=== PATIENT | female | born 1985 | race Caucasian/White ===

== ENCOUNTER 2022-05-05 16:41 | Outpatient (CLI) | payer OTHER, SELFPAY ==
--- OUTSIDE RECORDS SUMMARY | 2022-05-05 16:45 | XMS_ITS | Encounter Summary ---
:1985 Author Organization [facility] Address [address] [place] [address] Care Team Providers Name Role Phone Unavailable Primary Care Provider Unavailable Encounter Details Date Type Department Care Team Description 09/17/2020 Orders Only [facility] PCP TH Sa drea Gardiner M.D. [address] [place] [address] [phone] (Wo rk) Social History Tobacco Use Types Packs/Day Years Used Date Smoking Tobacco: Never Smokeless Tobacco: Never Sex Assigned at Date Recorded Not on file documented as of this encounter Plan of Treatment Not on filedocumented as of this encounter Visit Diagnoses Not on filedocumented in this encounter
--- OUTSIDE RECORDS SUMMARY | 2022-05-05 16:45 | XMS_ITS | Clinical Summary ---
:1985 Author Organization [facility] [place] [address] Care Team Providers Name Role Phone Clinic, [facility] Primary Care Provider + Allergies Active Allergy Reactions Severity Noted Date Comments Sumatriptan Vomiting 08/30/2012 Lactose GI Upset 04/11/2011 Lactose Sulfa (Sulfonamide Antibiotics) Hives 0 Medications Medication Sig Dispensed Refills Start Date End Date Status vitamin-folic Take 1 tablet by 0 04/24/2011 Active acid 1 mg ( mouth once daily. VITAMIN) tablet/capsule NebulizerIndications: Nebulizer, neb 1 Device 2 03/26/2014 Active Extrinsic asthma, kit, neb cup and unspecified mask. Medication: Budesonide & DuoNebs For home use. Length of need for Medicare patients: 99 months montelukast Take 1 tablet by 30 tablet 11 06/11/2015 Active (SINGULAIR) 10 mg mouth at bedtime. tabletIndications: Allergic rhinitis, unspecified allergic rhinitis type, Extrinsic asthma, unspecified asthma severity, uncomplicated albuterol-ipratropium Inhale 3 mL via a 120 Vial 11 06/11/2015 Active (DUONEB) (2.5-0.5 mg) nebulizer 4 times in 3 mL NEBULIZATION daily if needed solutionIndications: for Shortness Of Extrinsic asthma, Breath or unspecified asthma Wheezing. severity, uncomplicated COMBIVENT RESPIMAT INHALE 1 PUFF BY 1 Inhaler 0 10/28/2016 Active 20-100 mcg/actuation MOUTH 4 TIMES inhalerIndications: DAILY. Extrinsic asthma, unspecified asthma severity, uncomplicated albuterol HFA Inhale 2 Puffs by 1 Inhaler 0 11/05/2016 Active (VENTOLIN HFA) 90 mouth 4 times mcg/actuation daily if needed. inhalerIndications: Extrinsic asthma, unspecified asthma severity, uncomplicated BREO ELLIPTA 100-25 11 08/02/2018 Active mcg/dose inhaler cetirizine (ZYRTEC) 5 Take 1 tablet by 0 08/08/2018 Active mg tablet mouth once daily. Active Problems Problem Noted Date 35 weeks gestation of 08/08/2018 Overview: following at [facility] Allergic conjunctivitis 03/26/2014 Allergic rhinitis 07/29/2012 Other acne 07/06/2011 ASCUS with positive high risk HPV 04/23/2011 Overview: 04/2011- ASCUS & HPV POSITIVE; 02/2012-[place] KRIS I; 01/2013-[place] negative-repeat pap in 1 mario becerra Last Assessment & Plan: 12/2013 Pap NIL Per provider Carolyn mcfarlane NP , Will get PAP at post visit to include ECC. If NIL-Return to Routine screening. RERE: 08/22/2014 Pap & ECC due late spring 2014 Endometriosis, site unspecified 02/26/2010 Moderate to Severe Persistent Asthma 02/26/2010 Headache(784.0) 02/26/2010 Tension headache 02/26/2010 Estimated Date of Delivery Comments Yes 09/06/2018 Resolved Problems Problem Noted Date Resolved Date Supervision of other normal , antepartum 05/09/2015 08/08/2018 Overview: Abnormal LMP Close spacing, 08/11/2014 Lives in [place] History of Asthma-worsened in History of OLIVER's O positive (normal spontaneous vaginal delivery) 08/12/2014 08/08/2018 Decreased movement 07/11/2014 04/30/2015 Normal in multigravida 12/13/2013 019 Overview: LMP: 11/15/2013 EDC 08/24/2014 Asthma Worsened in this Declined Genetic screening Baby Alex Moderate persistent asthma 07/29/2012 04/23/2014 Allergic rhinitis due to pollen 07/29/2012 03/26/20 14 False labor after 37 weeks of gestation without delivery 03/201204/30/2015 (normal spontaneous vaginal delivery) 12/30/2011 08/08/2018 care and examination of lactating mother 12/30/19 12 04/30/2015 Diarrhea 11/16/2011 04/30/2015 Marginal placenta previa 09/28/2011 04/30/2015 Last Assessment & Plan: Formatting of th is note might be different from the original. Placenta previa resolved per repeat US. Nicole Paez MD 12/27/2011 9:36 PM Supervision of normal first 05/22/2011 Overview: Hospital: [facility] Boyfriend: Chandra Taylor UTI at first OB visit Declines FS/SS, QS and CF Marginal placenta previa at 20 weeks. Re check 28wks- resolved, no previa Tdap 11/23/2011 Immunizations Name Administration Dates Next Due Influenza, IIV3 (Age >=3 years) 02/15/2012 Influenza, IIV4 03/15/2018, 03/06/2017, 04/30/2015, 03/08/2014 MMR 12/09/2015 Pneumococcal Poly,23-Valent 03/12/2006 (Pneumovax) Tdap 06/21/2018, 10/25/2015, 05/30/2014, 11/23/2011 Family History Medical History Relation Name Comments Good Health Brother 2 Heart Disease Father [place] age 42 Other Maternal Grandfather Psychiatric illness Maternal Grandfather Alcoholism Maternal Grandmother Anesthesia Problem Maternal Grandmother Cancer Maternal Grandmother Cancer-breast Maternal Grandmother Alcoholism Mother Allergies Mother Arthritis Mother Psychiatric illness Mother bipolar Cancer Paternal Grandfather Cancer-prostate Paternal Grandfather Arthritis Paternal Grandmother Good Health Son 2 Relation Name Status Comments Brother 1 Alive Brother 2 Father Alive no relationship; parents and remarried Maternal Grandfather Maternal Grandmother Mother Alive bipolar with eto h abuse hx Paternal Grandfather Alive Paternal Grandmother Alive Son 1 Alive Son 2 Social History Tobacco Use Types Packs/Day Years Used Date Smoking Tobacco: Never Smokeless Tobacco: Never Tobacco Cessation: Counseling Given: Yes Alcohol Use Standard Drinks/Week Comments Not Currently 1 (1 standard drink = 0.6 oz pure hx of heavy drinking age 20-21, pt alcohol) cut back, now infreq uent social use; cage screen neg ative Estimated Date of Delivery Comments Yes 09/06/2018 Sex Assigned at Date Recorded Not on file Obstetrics History Para Term AB IAB SAB Ectopic Multiple Living Live Births 4 2 2 0 0 0 0 0 0 2 2 Date Outcome GA Total Labor/2nd/3rd Weight Sex Delivery Anes PTL Toshia A 1 A5 Name Clin Labor 12/29 Term 39w 3.83 kg M Vag Epidu N Lara Jas /2011 3d (8 lb 7 ral ng oz) Delivery Location: [facility] Comments: BLN:BUBAK PEDS:UNDOC 08/11/2014 Term 38w3d 2.98 kg (6 lb 9 oz) F Vag Epidural Living 8 8 mylee Delivery Location: [facility] Current Last Filed Vital Signs Vital Sign Reading Time Taken Comments Blood Pressure 106/60 08/08/2018 10:25 AM CDT Pulse 92 08/08/2018 10:25 AM CDT Temperature 37.4 ??C (99.4 ??F) 08/27/2016 6:15 PM CDT Respiratory Rate 16 08/08/2018 10:25 AM CDT Oxygen Saturation 98% 08/27/2016 6:15 PM CDT Inhaled Oxygen Concentration - - Weight 103.3 kg (227 lb 12.8 oz) 08/08/2018 10:25 AM CDT Height 164 cm (5' 4.57) 08/08/2018 10:25 AM CDT Body Mass Index 38.42 08/08/2018 10:25 AM CDT Plan of Treatment Health Maintenance Due Date Last Done Comments COVID-19 vaccine series (#1) 1985 Depression screening for age 12+ 1999 Hepatitis C screening for age 0105/26/2005 18-79 BMI (ht and wt on same day) for 08/09/2019 08/08/2018, 11/0 08/2015, age 18+ 06/03/2015 Pap test for age 21-65 09/29/2019 09/28/2016, 09/28/2016, 10/03/2014, Additional history exists Influenza for age 9-49 01/22/2022 03/15/2018, 03/06/2017, 04/30/2015, Additional history exists Tetanus booster 06/21/2028 06/21/2018, 10/25/2015, 05/30/2014, Additional history exists HIV for age 15-65 Completed 05/09/2015, 01/11/2014, 05/22/2011 Tdap Completed 06/21/2018, 10/25/2015, 05/30/2014, Additional history exists Results Not on filefrom Last 3 Months Insurance Payer Benefit Plan / Group Subscriber ID Effective Phone Addre ss Type Dates WC WORKERS WC RISK [id number] 2018-Pres [address] [employer] AD[employer]R[place]IVE [place] [phone] WC WORKERS SFM [id number] 2020-Pres [address] [place] [address] BLUE [employer]OSS BLUE CROSS OF [id number] 2018-Pres [address] [facility] ent [id number] [place] [address] RowdyjolieJanki Personal/Family Self [address] (Home) [phone] [place], [place] (Work) [phone] [employer] Comp Self [address] (Home) [place] [address] Advance Directives Latest Code Status on File Code Status Date Activated Date Inactivated Comments Full Code 08/10/2014 6:25 PM 08/11/2014 5:21 AM Code Status History Code Status Date Activated Date Inactivated Comments Full Code 08/10/2014 3:52 PM 08/10/2014 6:25 PM Full Code 08/08/2014 3:35 PM 08/08/2014 8:51 PM Full Code 07/10/2014 7:10 PM 07/10/2014 10:19 PM Full Code 12/30/2011 1:11 PM 01/01/2012 3:09 PM Care Teams Tip Stitcher Relationship Specialty Start Date End Date [facility] PCP - General 03/15/14 [address] [facility] [address] [place] [address]
--- OUTSIDE RECORDS SUMMARY | 2022-05-05 16:45 | XMS_ITS | Encounter Summary ---
:1985 Author Organization [facility] Address [address] [place] [address] Care Team Providers Name Role Phone Unavailable Primary Care Provider Unavailable Encounter Details Date Type Department Care Team Description 07/13/2016 Hospital Encounter HX [facility] SLEEPSTUD Aimee Persaud M.D., M.P.H. [address] [phone] (Wo rk) Social History Tobacco Use Types Packs/Day Years Used Date Smoking Tobacco: Never Assessed Sex Assigned at Date Recorded Not on file documented as of this encounter Medications at Time of Discharge Medication Sig Dispensed Refills Start Date End Date ipratropium-albuteroL Inhale 3 mL as 0 06/11/2015 (DUO-NEB) 0.5-2.5 mg/3 mL needed. nebulizer solution documented as of this encounter Procedure Notes Hector Persaud M.D., M.P.H. - 07/13/2016 12:00 AM CST [id number] REFERRING PHYSICIAN Hector Persaud MD The patient is referred by Dr. Persaud for history of hypersomnia. [place] sleepiness score of 12. TECHNICAL DESCRIPTION This is an in-lab, attended polysomnogram ordered as a split-night performed on a patient with an [place] sleepiness score of 12. During the study which lasted 421.6 minutes she did not meet criteria for sleep apnea and so CPAP titration was not attempted. Her sleep efficiency was 93.7%. The relative sleep stages were stage I, 3.3%, stage II, 31.2%, stage III, 43.4% and stage REM 22.1%. Sleep latencywas 4 minutes and REM latency was 82 minutes. Her central apnea-hypopnea index was 1. RERA index was1. Total respiratory distress index was 2. Oxygen saturation was greater than 90% SpO2 99.9% of the time. IMPRESSION/RECOMMENDATION This patient did not demonstrate sleep-disordered breathing and had a good sleep efficiency and a normal sleep distribution. She commented that she slept better when her son was not there to wake her up, so perhaps some of her excessive sleepiness is related to the circumstances at home that she is trying to sleep under. Hector Persaud M.D./doyle Electronically Signed By: HECTOR PERSAUD MD MPH On: 07/20/2016 12:43 PM Source: [facility] [id number] Document Id: [id number] HISTORY INSTRUCTOR documented in this encounter Plan of Treatment Not on filedocumented as of this encounter Visit Diagnoses Not on filedocumented in this encounter
--- OUTSIDE RECORDS SUMMARY | 2022-05-05 16:45 | XMS_ITS | Clinical Summary ---
:1985 Author Organization [facility] Address [address] [place] [address] Care Team Providers Name Role Phone Unavailable Primary Care Provider Unavailable Source Comments Patient records contain information from all sites at [facility]. For routine questions regarding patient records, call [phone] during business hours, M-F 8:00 AM - 5:00 PM Central Time. Record requests for emergency care only can be directed to [phone] at any time.[facility] Allergies Active Allergy Reactions Severity Noted Date Comments Sumatriptan Succinate GI intolerance 06/06/2017 Sulfa (Sulfonamide Antibiotics) Hives 8 Sumatriptan Other (see comments) 08/30/2012 Medications Medication Sig Dispensed Refills Start Date End Date Status ipratropium-albuterol Inhale 1 puff 4 0 Active (for_COMBIVENT RESPIMAT) (four) times a 20-100 mcg/actuation day. inhaler montelukast Take 10 mg by 0 Acti ve (for_SINGULAIR) 10 mg mouth at tablet bedtime. cetirizine (for_ZyrTEC) Take 10 mg by 0 Active 10 mg tablet mouth daily. fluticasone-vilanterol Inhale 1 puff 0 Active (for_BREO ELLIPTA once daily. DISKUS) 100-25 mcg/actuation inhaler albuterol (for_PROVENTIL Inhale every 6 0 Active HFA,VENTOLIN HFA) 90 (six) hours as mcg/actuation inhaler needed for wheezing. drospirenone-ethinyl Take 1 tablet 0 Active estradiol by mouth daily. (for_YAZ,GIANVI) 3-0.02 mg per tablet ipratropium-albuteroL Inhale 3 mL as 0 06/11/2015 Active (DUO-NEB) 0.5-2.5 mg/3 needed. mL nebulizer solution sertraline (ZOLOFT) 100 Take 100 mg by 0 Active mg tablet mouth daily. methylphenidate HCl Take 1 capsule 30 capsule 0 10/04/2019 Active (Ritalin LA) 20 mg ER (20 mg total) capsule by mouth daily. methylphenidate HCl Take 1 capsule 30 capsule 0 11/03/2019 Active (Ritalin LA) 20 mg ER (20 mg total) capsule by mouth daily. methylphenidate HCl Take 1 capsule 30 capsule 0 05/07/2020 Active (Ritalin LA) 20 mg ER (20 mg total) capsule by mouth daily. Active Problems No known active problems Social History Tobacco Use Types Packs/Day Years Used Date Smoking Tobacco: Never Smokeless Tobacco: Never Sex Assigned at Date Recorded Not on file Last Filed Vital Signs Vital Sign Reading Time Taken Comments Blood Pressure 115/78 05/25/2021 3:30 PM [facility] Pulse 92 05/25/2021 3:30 PM [facility] Temperature 37.3 ??C (99.1 ??F) 05/25/2021 3:28 PM [facility] Respiratory Rate 16 06/06/2017 5:34 PM [facility] Oxygen Saturation 99% 05/25/2021 3:30 PM [facility] Inhaled Oxygen Concentration - - Weight 86.2 kg (190 lb 0.6 oz) 05/25/2021 3:53 PM [facility] Height - - Body Mass Index - - Plan of Treatment Health Maintenance Due Date Last Done Comments Cervical Cancer Screening 1985 HIV Screening 1985 Hepatitis B Vaccines (1 of 1985 3 - 3-dose series) Hepatitis C Screening 1985 COVID-19 Vaccine (3 - 08/27/2020 07/02/2020, 06/11/2020 Booster for Pfizer series) Depression Screening 05/24/2021 (Annual PHQ-2) Influenza Vaccine (#1) 2022 04/19/2020, 03/02/2019, 03/15/2018, Additional history exists DTaP,Tdap,and Td Vaccines 06/21/2028 06/21/2018, 06/21/2018 , (5 - Td or Tdap) 10/25/2015, Additional history exists Pneumococcal vaccine (0-64 Aged Out 03/12/2006 No lo nger eligible years) based on patient 's age to complete this topic Insurance Payer Benefit Plan / Subscriber ID Effective Phone Address T ype Group Dates PREFERREDONE PREFERREDONE [id number] 2021-Pres [phone] PPO ADMINISTRATIVE [place] [id number] [place] [id number]
--- OUTSIDE RECORDS SUMMARY | 2022-05-05 16:45 | XMS_ITS | Encounter Summary ---
:1985 Author Organization [facility] Address [address] [place] [address] Care Team Providers Name Role Phone Unavailable Primary Care Provider Unavailable Reason for Visit Reason Comments Sore Throat Pt tested + for influenza on 05/16 Encounter Details Date Type Department Care Team Description 05/25/2021 Emergency [place] [facility], Pharyngitis Acute (Primary Dx); Department P.A.-C. Laryngitis Acute [facility] [address] [address] [place], [place] [phone] Social History Tobacco Use Types Packs/Day Years Used Date Smoking Tobacco: Never Smokeless Tobacco: Never Sex Assigned at Date Recorded Not on file documented as of this encounter Last Filed Vital Signs Vital Sign Reading Time Taken Comments Blood Pressure 115/78 05/25/2021 3:30 PM [facility] Pulse 92 05/25/2021 3:30 PM [facility] INS[facility] Temperature 37.3 ??C (99.1 ??F) 05/25/2021 3:28 PM DIE INSPECTOR Respiratory Rate - - Oxygen Saturation 99% 05/25/2021 3:30 PM [facility] INS[employer] Inhaled Oxygen Concentration - - Weight 86.2 kg (190 lb 0.6 oz) 05/25/2021 3:53 PM DIE INSPECTOR Height - - Body Mass Index - - documented in this encounter Discharge Instructions AttachmentsThe following attachments cannot be sent through Care Everywhere. Laryngitis [id number] (Tajik)documented in this encounter Medications at Time of Discharge Medication Sig Dispensed Refills Start Date End Date albuterol (for_PROVENTIL Inhale every 6 (six) 0 HFA,VENTOLIN HFA) 90 hours as needed for mcg/actuation inhaler wheezing. cetirizine (for_ZyrTEC) 10 Take 10 mg by mouth 0 mg tablet daily. drospirenone-ethinyl Take 1 tablet by 0 estradiol (for_YAZ,GIANVI) mouth daily. 3-0.02 mg per tablet fluticasone-vilanterol Inhale 1 puff once 0 (for_BREO ELLIPTA DISKUS) daily. 100-25 mcg/actuation inhaler ipratropium-albuteroL Inhale 3 mL as 0 06/11/2015 (DUO-NEB) 0.5-2.5 mg/3 mL needed. nebulizer solution ipratropium-albuterol Inhale 1 puff 4 0 (for_COMBIVENT RESPIMAT) (four) times a day. 20-100 mcg/actuation inhaler montelukast Take 10 mg by mouth 0 (for_SINGULAIR) 10 mg at bedtime. tablet sertraline (ZOLOFT) 100 mg Take 100 mg by mouth 0 tablet daily. documented as of this encounter ED Notes Cullen Carter P.A.-C. - 05/25/2021 3:59 PM CST SUBJECTIVE CHIEF COMPLAINT/REASON FOR VISIT Sore Throat (Pt tested + for influenza on 05/16) HISTORY OF PRESENT ILLNESS Patient presents emergency department chief complaint of sore throat with laryngitis for the past few days. Patient states she was diagnosed with influenza A variant on May 16 and was placed on short course of prednisone due to her underlying asthma condition. Patient improved somewhat and thensymptoms return and she was placed o prednisone taper dose and she is currently in the second day ofthe high dose regimen. Her complaint today is his sore throat swelling sensation with swallowing andcomplete loss of voice. She denies any current fevers shaking cold chills. Patient does have a history of asthma and has been utilizing her home medications as needed. She still has a cough that is nonproductive. She states chest tightness is been stable the past few days. History provided by: Patient heel attacher needed/used: no Sore Throat Location: Generalized Quality: Burning Severity: Moderate Onset quality: Gradual Duration: 3 days Timing: Constant Progression: Unchanged Chronicity: New Relieved by: Nothing Worsened by: Swallowing Ineffective treatments: NSAIDs Associated symptoms: cough, headaches, rhinorrhea and voice change Associated symptoms: no abdominal pain, no chest pain, no chills, no ear discharge, no ear pain, no epistaxis, no fever, no neck stiffness, no postnasal drip, no rash, no shortness of breath, no sinus congestion and no trouble swallowing REVIEW OF SYSTEMS Constitutional: Negative for chills and fever. HENT: Positive for rhinorrhea, sore throat and voice change. Negative for ear discharge, ear pain, nosebleeds, postnasal drip and trouble swallowing. Respiratory: Positive for cough. Negative for chest tightness, shortness of breath and wheezing. Cardiovascular: Negative for chest pain. Gastrointestinal: Negative for abdominal pain, nausea and vomiting. Genitourinary: Negative for dysuria and flank pain. Musculoskeletal: Negative for neck stiffness. Skin: Negative for rash. Neurological: Positive for headaches. Negative for light-headedness. OBJECTIVE Initial Vitals Temperature Pulse Rate Heart Rate Resp Blood Pressure SpO2 05/25/21 1528 05/25/21 1530 -- -- 05/25/21 1530 05/25/21 1530 37.3 ??C 92 115/78 99 % Pain Score 05/25/21 1528 7 PHYSICAL EXAMINATION Constitutional: Nursing note and vitals reviewed. Vital signs are normal. She is active and cooperative. No distress. HENT: Head: Normocephalic. Right Ear: Tympanic membrane normal. Left Ear: Tympanic membrane normal. Nose: Nose normal. No nasal discharge. Mouth/Throat: Oropharynx is clear and moist. Mucous membranes are moist. No tonsillar exudate. Eyes: Conjunctivae are normal. Pupils are equal, round, and reactive to light. Cardiovascular: Normal rate and regular rhythm. Pulses are strong and palpable. Capillary refill: takes less than 3 seconds, Edema: no edema noted Pulmonary/Chest: Effort normal and breath sounds normal. There is normal air entry. No respiratory distress. She has no wheezes. Musculoskeletal: General: Normal range of motion. Neurological: Alert and oriented to person, place, and time. She has normal sensation and normal strength. GCS eye subscore is 4. GCS verbal subscore is 5. GCS motor subscore is 6. Normal speech. Skin: Skin is warm, dry, intact and normal color. She is not diaphoretic. Psychiatric: She has a normal mood and affect. Behavior is normal. Judgment and thought content normal. ASSESSMENT/PLAN IMPRESSION AND PLAN Patient presents emergency department chief complaint of continued cough, sore throat and now laryngitis. Patient is diagnosed with influenza a May 16 and was placed on short course of prednisone with slight improvement, patient was then placed on tapering dose of prednisone. Now she has sore throat with laryngitis symptoms. Patient's asthma appears stable, lung sounds are clear bilateral. Patient appears to have upper respiratory infection which involves laryngitis. This matches viral process that is been the community the past few weeks. 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 I strongly encouraged her to incorporate vocal rest in her recovery plan. She is to continue with her steroids and other medications as planned. Patient was given written and verbalinstructions on managing laryngitis. DIFFERENTIAL DIAGNOSIS Upper respiratory infection, laryngitis, streptococcal pharyngitis, viral syndrome Final Diagnoses: as of 05/28/[address] Pharyngitis Acute Laryngitis Acute Cullen Carter P.A.-C. 05/28/[address] INSPECTOR documented in this encounter Plan of Treatment Not on filedocumented as of this encounter Visit Diagnoses Diagnosis Pharyngitis Acute - Primary Laryngitis Acute documented in this encounter
--- OUTSIDE RECORDS SUMMARY | 2022-05-05 16:45 | XMS_ITS | Encounter Summary ---
:1985 Author Organization [facility] Address [address] [place] [id number] Care Team Providers Name Role Phone Unavailable Primary Care Provider Unavailable Reason for Referral Outpatient (Routine) - Closed Specialty Diagnoses / Procedures Referred By Contact Refer red To Contact Sleep Medicine Aimee Bird M.D., [facility] M.P.H. [address] [place] [address] Referral ID Status Reason Start Date Expiration Date Visits Requ ested Visits Authorized [id number] Closed 09/04/2019 09/03/2020 1 1 Reason for Visit Reason Comments Headache Has a headache daily. Her Mi berg is in flowsheet. Heart rate 99 but does not have a blood pressure chilo e. Follow-up Weight is 90.7 kg per patien t. Appointment Request (Routine) - Closed Specialty Diagnoses / Procedures Referred By Contact Refer red To Contact Neurology Referral ID Status Reason Start Date Expiration Date Visits Requ ested Visits Authorized [id number] Closed 07/10/2019 07/09/2020 1 1 Encounter Details Date Type Department Care Team Description 09/04/2019 Telemedicine Department of Aimee Bird Hypersomni a (Primary Dx); Neurology in [place], M.P .H. Headache [place] [address] [place] [phone] Social History Tobacco Use Types Packs/Day Years Used Date Smoking Tobacco: Never Smokeless Tobacco: Never Sex Assigned at Date Recorded Not on file documented as of this encounter Progress Notes Aimee Bird M.D., M.P.H. - 09/04/2019 3:15 PM CDT SUBJECTIVE Consult conducted via real-time audio/video technology by Amiee Bird M.D., M.P.H. from [facility] the patient in their home. Virtual visit between Dr. Bird and Janki. Janki is a 34 y.o. female who agreed to a virtual visit. HISTORY OF PRESENT ILLNESS Seeing this patient back in January of 2017 at [facility]. She had a history of sleepiness and I noted that she had a polysomnogram done in 2009 in [place] which was consistent with idiopathic hypersomnia as she did not have a short REM latency but did have a short sleep latency. She also notes that she takes naps and they are not refreshing for her. She still feels tired during the day but does not have issues fallen asleep while she drives and isn't concerned about that. She had taken Ritalin in the past and up to 20 mg b.i.d.. She became and stopped taking methylphenidate during that time. She delivered the baby about a year ago and then restarted taking methylphenidate that she had left over on approximately every other day basis. She says it is helpful and would like to restart that. She also has frequent headaches and takes Excedrin periodically for that she has headaches almost every day. In the past I had put her on Pamelor 10 mg at night to see if that helped her headaches. She is presently not on that. She is primarily interested in getting the methylphenidate again. We discussed restarting methylphenidate 20 mg in the morning to see whether this would be beneficial. We could potentially increase the dose later on as this medicine tends to become less effectiveover time specially if there is not a drug holiday. We talked about trying a drug holiday on the weekends and she seemed receptive to that idea. Her medicines do not include an IUD which is what she isusing right now to prevent . Her does not report that she is snoring anymore nor other witnessed apneas. Her doeshave sleep apnea and uses a CPAP machine. From her prior polysomnogram.: The patient is referred by Dr. Brid for history of hypersomnia. Milligan sleepiness score of 12. TECHNICAL DESCRIPTION This is an in-lab, attended polysomnogram ordered as a split-night performed on a patient with an Milligan sleepiness score of 12. During the study [...] that she is trying to sleep under. Miah Bird M.D./doyle We reviewed and renewed medications as outlined below. We reviewed pertinent preventative care. No results found for this or any previous visit. Medication changes today: New Medications Ordered This Visit Medications ??? ipratropium-albuteroL (DUO-NEB) 0.5-2.5 mg/3 mL nebulizer solution Sig: Inhale 3 mL as needed. ??? sertraline (ZOLOFT) 100 mg tablet Sig: Take 100 mg by mouth daily. ??? methylphenidate HCl (Ritalin LA) 20 mg ER capsule Sig: Take 1 capsule (20 mg total) by mouth daily. Dispense: 30 capsule Refill: 0 ??? methylphenidate HCl (Ritalin LA) 20 mg ER capsule Sig: Take 1 capsule (20 mg total) by mouth daily. Dispense: 30 capsule Refill: 0 ??? methylphenidate HCl (Ritalin LA) 20 mg ER capsule Sig: Take 1 capsule (20 mg total) by mouth daily. Dispense: 30 capsule Refill: 0 There are no discontinued medications. The patient's allergies, current medications, problem list and medical history portions of the patient's history were reviewed and updated as appropriate. REVIEW OF SYSTEMS SOCIAL HISTORY Social History Tobacco Use ??? Smoking status: Never Smoker ??? Smokeless tobacco: Never Used Substance Use Topics ??? Alcohol use: Not on file Social History Social History Narrative ??? Not on file OBJECTIVE VITAL SIGNS Current vitals signs couldn't be obtained as this is virtual visit. If patient reports a current weight or home BP this has been recorded. BMI Readings from Last 3 Encounters: No data found for BMI Wt Readings from Last 3 Encounters: 06/06/17 86.2 kg PHYSICAL EXAMINATION Physical Exam The patient looked very well and was in no distress. Her cranial nerves appeared normal and she walked with no ataxia as she moved about the house attending to both the telephone call and her four children. ASSESSMENT / PLAN Encounter Diagnoses Name Primary? Hypersomnia Yes ??? Headache Going to restart methylphenidate 20 mg ER in the morning and then see how she does with that she is going to check in with me in about six months. The methylphenidate may actually increased some of herheadaches. I think the next visit will talk about whether we want to start to treat her headaches pro phylactically again or not. There are no Patient Instructions on file for this visit. #1 Hypersomnia #2 Headache Other orders - methylphenidate HCl (Ritalin LA) 20 mg ER capsule; Take 1 capsule (20 mg total) by mouth daily., Starting Wed09/04/2019, Until Wed10/03/2019, Normal - methylphenidate HCl (Ritalin LA) 20 mg ER capsule; Take 1 capsule (20 mg total) by mouth daily., Starting Wed10/04/2019, Until Gale 11/02/2019, Normal - methylphenidate HCl (Ritalin LA) 20 mg ER capsule; Take 1 capsule (20 mg total) by mouth daily., Starting Wed11/03/2019, Until 12/02/2019, Normal - Sleep Medicine office visit (clinic); Future; Expected date: 03/05/2020 Total time with the patient today was 30 minutes including a chart review and counseling. documented in this encounter Plan of Treatment Scheduled Referrals Name Type Priority Associated Diagnoses Order S [facility] Sleep Medicine Outpatient Referral Routine Expect ed: office visit 03/05/2020 (clinic) (Approximate), Expires: 09/03/2022 documented as of this encounter Visit Diagnoses Diagnosis Hypersomnia - Primary Headache Unspecified documented in this encounter
--- OUTSIDE RECORDS SUMMARY | 2022-05-05 16:45 | XMS_ITS | Encounter Summary ---
:1985 Author Organization [facility] Address [address] [place] [address] Care Team Providers Name Role Phone Unavailable Primary Care Provider Unavailable Encounter Details Date Type Department Care Team Description 05/07/2020 Orders Only Department of Neurology in Aimee Bird M.D., [place], [place] M.P.H [address] [place] [address] [place], [place] [phone] (Wo rk) Social History Tobacco Use Types Packs/Day Years Used Date Smoking Tobacco: Never Smokeless Tobacco: Never Sex Assigned at Date Recorded Not on file documented as of this encounter Plan of Treatment Not on filedocumented as of this encounter Visit Diagnoses Not on filedocumented in this encounter
== END 2022-05-05 16:42 | disposition home or self-care (01) ==
LOC: KYNREF 16:44
PROVIDERS: PCP Family Medicine; Visit Provider Nurse Practitioner Family
DX: G47.00 Insomnia, unspecified (principal); L73.2 Hidradenitis suppurativa; F41.9 Anxiety disorder, unspecified
CPT/HCPCS: 84443

== ENCOUNTER 2022-10-30 07:56 | Outpatient (CLI) | payer OTHER, SELFPAY | END 2022-10-30 07:57 | disposition home or self-care (01) | PROVIDERS: PCP Nurse Practitioner Family; Visit Provider Nurse Practitioner Family | DX: Z48.817 Encounter for surgical aftercare following surgery on the skin and subcutaneous tissue (principal); L73.2 Hidradenitis suppurativa | CPT/HCPCS: 11042 ==

== ENCOUNTER 2022-11-04 07:58 | Outpatient (CLI) | payer OTHER, SELFPAY | END 2022-11-04 07:59 | disposition home or self-care (01) | LOC: WOUND 07:59 | PROVIDERS: PCP Nurse Practitioner Family; Visit Provider Surgery | DX: L73.2 Hidradenitis suppurativa (principal); Z48.817 Encounter for surgical aftercare following surgery on the skin and subcutaneous tissue | CPT/HCPCS: 97602 ==

== ENCOUNTER 2022-11-18 08:03 | Outpatient (CLI) | payer OTHER, SELFPAY | END 2022-11-18 08:04 | disposition home or self-care (01) | LOC: WOUND 08:03 | PROVIDERS: PCP Nurse Practitioner Family; Visit Provider Surgery | DX: L73.2 Hidradenitis suppurativa (principal); Z48.817 Encounter for surgical aftercare following surgery on the skin and subcutaneous tissue | CPT/HCPCS: 99212; 99213 ==

== ENCOUNTER 2022-12-02 08:02 | Outpatient (CLI) | payer OTHER, SELFPAY | END 2022-12-02 08:03 | disposition home or self-care (01) | LOC: WOUND 08:02 | PROVIDERS: PCP Nurse Practitioner Family; Visit Provider Surgery | DX: L73.2 Hidradenitis suppurativa (principal) | CPT/HCPCS: 99212 ==

== ENCOUNTER 2024-11-30 13:08 | Outpatient (CLI) | payer BC, SELFPAY | END 2024-11-30 13:09 | disposition home or self-care (01) | LOC: KYNREF 13:09 | PROVIDERS: PCP Nurse Practitioner Family; Visit Provider Nurse Practitioner Family | DX: Z51.81 Encounter for therapeutic drug level monitoring (principal) | CPT/HCPCS: 80048 ==